=== PATIENT | male | born 1940 | race Caucasian/White ===

== ENCOUNTER 2016-12-16 13:34 | Outpatient (CLI) | payer OTHER ==
[2015-07-13 17:12] VITALS: BP 129/51
--- NOTE | 2016-12-16 15:31 | Diagnostic Imaging Report ---
Blas Garcia [facility] [address] [facility].[address] [address] Report Submission Date: Dec 16, 2016 2:09:02 PM CDT Patient Study Name: LIAM OSBORN Date: Dec 16, 2016 1:44:13 PM CDT Modality Type: CR Gender: M Description: CHEST : 44 Institution: [facility] Physician: Blas Garcia Examination: PA and lateral chest. History: Evaluate lung johnson. Comparison exam: None available Findings: PA lateral chest demonstrate a prominent cardiac and mediastinal silhouette. Vascular calcifications involving aortic arch. Chronic appearing interstitial changes. Lateral pleural thickening. No focal infiltrate. No blunting of the costophrenic margins. Osseous structures are appropriate for age. Impression: Chronic parenchymal changes. No acute pulmonary process. Electronically signed on Dec 16, 2016 2:09:02 PM CDT by: John HWANG
== END 2016-12-16 13:40 ==
LOC: RAD 13:34
PROVIDERS: ATTEND Internal Medicine
DX: R06.02 Shortness of breath (principal)
CPT/HCPCS: 71020

== ENCOUNTER 2017-05-08 09:38 | Outpatient (CLI) | payer OTHER ==
[2015-07-13 17:12] VITALS: BP 129/51
== END 2017-05-08 09:40 ==
LOC: LAB 09:38
PROVIDERS: ATTEND Nurse Practitioner Family
DX: Z79.01 Long term (current) use of anticoagulants (principal)
CPT/HCPCS: 36415; 85610

== ENCOUNTER 2017-05-15 09:10 | Outpatient (CLI) | payer OTHER ==
[2015-07-13 17:12] VITALS: BP 129/51
== END 2017-05-15 09:11 ==
LOC: LAB 09:10
PROVIDERS: ATTEND Internal Medicine Cardiovascular Disease
DX: Z79.01 Long term (current) use of anticoagulants (principal)
CPT/HCPCS: 36415; 85610

== ENCOUNTER 2017-05-24 09:02 | Outpatient (CLI) | payer OTHER ==
[2015-07-13 17:12] VITALS: BP 129/51
== END 2017-05-24 09:03 ==
LOC: LAB 09:02
PROVIDERS: ATTEND Internal Medicine Cardiovascular Disease
DX: Z79.01 Long term (current) use of anticoagulants (principal)
CPT/HCPCS: 36415; 85610

== ENCOUNTER 2017-05-29 08:48 | Outpatient (CLI) | payer OTHER ==
[2015-07-13 17:12] VITALS: BP 129/51
== END 2017-05-29 08:50 ==
LOC: LAB 08:48
PROVIDERS: ATTEND Internal Medicine Cardiovascular Disease
DX: Z79.01 Long term (current) use of anticoagulants (principal)
CPT/HCPCS: 36415; 85610

== ENCOUNTER 2017-06-19 09:06 | Outpatient (CLI) | payer OTHER ==
[2015-07-13 17:12] VITALS: BP 129/51
== END 2017-06-19 09:08 ==
LOC: LAB 09:06
PROVIDERS: ATTEND Internal Medicine Cardiovascular Disease
DX: Z79.01 Long term (current) use of anticoagulants (principal)
CPT/HCPCS: 36415; 85610

== ENCOUNTER 2017-08-18 08:07 | Outpatient (CLI) | payer OTHER ==
[2015-07-13 17:12] VITALS: BP 129/51
== END 2017-08-18 08:10 ==
LOC: LAB 08:07
PROVIDERS: ATTEND Internal Medicine Cardiovascular Disease
DX: Z79.01 Long term (current) use of anticoagulants (principal)
CPT/HCPCS: 36415; 85610

== ENCOUNTER 2017-09-17 16:53 | Emergency (ER) | payer OTHER ==
[2017-09-17 17:50] VITALS: BP 147/65
--- NOTE | 2017-09-17 17:51 | ED Physician Documentation ---
General Adult - HISTORIAN Historian: patient - HPI Stated Complaint: Discolored Toes Chief Complaint: General Adult Additional Information: Walking between deck and inside of his house and noted his toes were purple on the left foot. Called [facility] nurse and was told to come to the ER. Has recently had problems with his feet swelling and his diuretic dosage was recently increased. IDDM. HX cardiac stents. On coumadin. Sees Alejandrina Uri and has appointment with her tomorrow. No other modifying factors or associated events. - ROS CONST: no problems - PAST HX Past History: other (above) Allergies/Adverse Reactions: Allergies Allergy/AdvReac Type Severity Reaction Status Date / Time No Known Allergies Allergy Verified 07/13/15 10:09 Home Medications: Ambulatory Orders Medication Instructions Recorded Aspirin [Ruby] 81 mg PO BID 07/13/15 Glimepiride [Glimepiride] 4 mg PO BID 07/13/15 Nitroglycerin [Nitrostat] 0.4 mg PO PRN PRN 07/13/15 Potassium Chloride [Potassium 20 mg PO D 07/13/15 Chloride] Amiodarone HCl [Pacerone] 200 mg PO QD 09/17/17 Atorvastatin Calcium [Atorvastatin 20 mg PO DAILY 09/17/17 Calcium] Carvedilol [Coreg] 3.125 mg PO BS 09/17/17 Furosemide [Lasix] 80 mg PO TID 09/17/17 Gabapentin [Gabapentin] 900 mg PO TID 09/17/17 Insulin Glargine,Hum.rec.anlog 09/17/17 [Lantus] Lisinopril [Lisinopril] 5 mg PO DAILY 09/17/17 Warfarin Sodium [Warfarin Sodium] 7.5 mg PO DAILY 09/17/17 amLODIPine BESYLATE [Norvasc] 5 mg PO DAILY 09/17/17 - SOCIAL HX Smoking History: non-smoker - FAMILY HX Family History: No - VITAL SIGNS Vital Signs: Vital Signs Temp Pulse Resp BP Pulse Ox 96.7 F L 68 18 137/55 98 09/17/17 16:55 09/17/17 16:55 09/17/17 16:55 09/17/17 16:55 09/17/17 16:55 - REVIEWED ASSESSMENTS Nursing Assessment Reviewed: Yes Vitals Reviewed: Yes General Adult Physical Exam - PHYSICAL EXAM GENERAL APPEARANCE: obese EENT: eye inspection normal, ENT inspection normal NECK: normal inspection RESPIRATORY: no resp distress BACK: normal inspection SKIN: warm/dry, normal color (some color changes about base of toes consistent with vascular insufficiency, L>R. mBil DP's 1+. No cyanosis, ecchymosis or other indication of vascular compromise. Feet are warm and pink. 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
== END 2017-09-17 17:48 | disposition home or self-care (01) ==
LOC: ED 16:53
DX: E11.9 Type 2 diabetes mellitus without complications (principal)

== ENCOUNTER 2017-09-27 08:45 | Outpatient (CLI) | payer OTHER | END 2017-09-27 08:46 | LOC: LAB 08:45 | PROVIDERS: ATTEND Internal Medicine Cardiovascular Disease | DX: Z79.01 Long term (current) use of anticoagulants (principal) | CPT/HCPCS: 36415; 85610 ==

== ENCOUNTER 2017-10-11 08:41 | Outpatient (CLI) | payer OTHER | END 2017-10-11 08:43 | LOC: LAB 08:41 | PROVIDERS: ATTEND Internal Medicine Cardiovascular Disease | DX: Z79.01 Long term (current) use of anticoagulants (principal) | CPT/HCPCS: 36415; 85610 ==

== ENCOUNTER 2017-10-24 08:32 | Outpatient (CLI) | payer OTHER | END 2017-10-24 08:34 | LOC: LAB 08:32 | PROVIDERS: ATTEND Internal Medicine Cardiovascular Disease | DX: Z79.01 Long term (current) use of anticoagulants (principal) | CPT/HCPCS: 36415; 85610 ==

== ENCOUNTER 2017-11-08 09:01 | Outpatient (CLI) | payer OTHER | END 2017-11-08 09:03 | LOC: LAB 09:01 | PROVIDERS: ATTEND Internal Medicine Cardiovascular Disease | DX: Z79.01 Long term (current) use of anticoagulants (principal) | CPT/HCPCS: 36415; 85610 ==

== ENCOUNTER 2017-12-14 09:34 | Outpatient (CLI) | payer OTHER | END 2017-12-14 15:25 | LOC: LAB 09:34 | PROVIDERS: ATTEND Internal Medicine Cardiovascular Disease | DX: Z79.01 Long term (current) use of anticoagulants (principal) | CPT/HCPCS: 36415; 85610 ==

== ENCOUNTER 2018-02-12 09:05 | Outpatient (CLI) | payer OTHER | END 2018-02-12 09:10 | LOC: LAB 09:05 | PROVIDERS: ATTEND Internal Medicine Cardiovascular Disease | DX: Z79.01 Long term (current) use of anticoagulants (principal); Z51.81 Encounter for therapeutic drug level monitoring | CPT/HCPCS: 36415; 85610 ==

== ENCOUNTER 2018-03-22 11:43 | Outpatient (CLI) | payer OTHER | END 2018-03-22 12:05 | LOC: LAB 11:43 | PROVIDERS: ATTEND Internal Medicine Cardiovascular Disease | DX: Z79.01 Long term (current) use of anticoagulants (principal) | CPT/HCPCS: 36415; 85610 ==

== ENCOUNTER 2018-04-19 08:54 | Outpatient (CLI) | payer OTHER | END 2018-04-19 08:56 | LOC: LAB 08:54 | PROVIDERS: ATTEND Internal Medicine Cardiovascular Disease | DX: Z79.01 Long term (current) use of anticoagulants (principal) | CPT/HCPCS: 36415; 85610 ==

== ENCOUNTER 2018-05-17 10:05 | Outpatient (CLI) | payer OTHER | END 2018-05-17 10:07 | LOC: LAB 10:05 | PROVIDERS: ATTEND Internal Medicine Cardiovascular Disease | DX: Z79.01 Long term (current) use of anticoagulants (principal) | CPT/HCPCS: 36415; 85610 ==

== ENCOUNTER 2018-05-31 10:26 | Outpatient (CLI) | payer OTHER | END 2018-05-31 12:55 | LOC: LAB 10:26 | PROVIDERS: ATTEND Internal Medicine Cardiovascular Disease | DX: Z79.01 Long term (current) use of anticoagulants (principal) | CPT/HCPCS: 36415; 85610 ==

== ENCOUNTER 2018-07-06 08:57 | Outpatient (CLI) | payer OTHER | END 2018-07-06 09:00 | LOC: LAB 08:57 | PROVIDERS: ATTEND Internal Medicine Cardiovascular Disease | DX: Z79.01 Long term (current) use of anticoagulants (principal) | CPT/HCPCS: 36415; 85610 ==

== ENCOUNTER 2018-08-30 10:14 | Outpatient (CLI) | payer OTHER | END 2018-08-30 10:16 | LOC: LAB 10:14 | PROVIDERS: ATTEND Internal Medicine Cardiovascular Disease | DX: Z79.01 Long term (current) use of anticoagulants (principal); Z51.81 Encounter for therapeutic drug level monitoring | CPT/HCPCS: 36415; 85610 ==

== ENCOUNTER 2018-10-30 09:58 | Outpatient (CLI) | payer OTHER | END 2018-10-30 10:00 | LOC: LAB 09:58 | PROVIDERS: ATTEND Internal Medicine Cardiovascular Disease | DX: Z51.81 Encounter for therapeutic drug level monitoring (principal); Z79.01 Long term (current) use of anticoagulants | CPT/HCPCS: 36415; 85610 ==

== ENCOUNTER 2018-11-27 10:30 | Outpatient (CLI) | payer OTHER | END 2018-11-27 10:40 | LOC: LAB 10:30 | PROVIDERS: ATTEND Internal Medicine Cardiovascular Disease | DX: Z51.81 Encounter for therapeutic drug level monitoring (principal); Z79.01 Long term (current) use of anticoagulants | CPT/HCPCS: 36415; 85610 ==

== ENCOUNTER 2018-12-25 10:13 | Outpatient (CLI) | payer OTHER | END 2018-12-25 10:18 | LOC: LAB 10:13 | PROVIDERS: ATTEND Internal Medicine Cardiovascular Disease | DX: Z51.81 Encounter for therapeutic drug level monitoring (principal); Z79.01 Long term (current) use of anticoagulants | CPT/HCPCS: 36415; 85610 ==

== ENCOUNTER 2019-01-02 12:51 | Outpatient (CLI) | payer OTHER | END 2019-01-02 12:56 | LOC: LAB 12:51 | PROVIDERS: ATTEND Internal Medicine Cardiovascular Disease | DX: Z51.81 Encounter for therapeutic drug level monitoring (principal); Z79.01 Long term (current) use of anticoagulants | CPT/HCPCS: 36415; 85610 ==

== ENCOUNTER 2019-01-09 11:18 | Outpatient (CLI) | payer OTHER | END 2019-01-09 11:23 | LOC: LAB 11:18 | PROVIDERS: ATTEND Internal Medicine Cardiovascular Disease | DX: Z51.81 Encounter for therapeutic drug level monitoring (principal); Z79.01 Long term (current) use of anticoagulants | CPT/HCPCS: 36415; 85610 ==

== ENCOUNTER 2019-01-21 09:55 | Outpatient (CLI) | payer OTHER | END 2019-01-21 10:00 | LOC: LAB 09:55 | PROVIDERS: ATTEND Internal Medicine Cardiovascular Disease | DX: Z51.81 Encounter for therapeutic drug level monitoring (principal); Z79.01 Long term (current) use of anticoagulants | CPT/HCPCS: 36415; 85610 ==

== ENCOUNTER 2019-01-24 11:26 | Outpatient (CLI) | payer OTHER ==
--- NOTE | 2019-01-24 12:22 | Diagnostic Imaging Report ---
PATIENT MR#: [id number] PATIENT PATIENT NAME: LIAM OSBORN DATE OF : 1940 REFERRING PHYSICIAN: Tiera Grewal EXAM DATE: 01/24/2019 ACCESSION NUMBER: [id number] EXAM DESCRIPTION: RT HIP 2VIEW COMPLETE Exam: Right hip. History: Pain after fall. AP and frogleg lateral view of the right hip are submitted. No signs of fracture or dislocation is seen. No bony erosions are seen. No soft tissue abnormalitie s are identified. Impression: No bony abnormality. Read by: Dr. Price Santos Transcribed by: Transcribed Date: Electronically signed by: Dr. Price Santos Date signed: 01/24/2019 12:21:45 PM
--- NOTE | 2019-01-24 12:23 | Diagnostic Imaging Report ---
PATIENT MR#: [id number] PATIENT PATIENT NAME: LIAM OSBORN DATE OF : 1940 REFERRING PHYSICIAN: Tiera Grewal EXAM DATE: 01/24/2019 ACCESSION NUMBER: [id number] EXAM DESCRIPTION: L SPINE 2 OR 3 VIEWS Exam: Lumbar spine. History: Fall. AP, lateral and L5-S1 spot view of the lumbar spine are submitted. Five functional lumbar vertebrae are identified. A levoscoliosis is identified. The vertebral body heights are adequately maintained. Disc space narrowing with endplate sclerosis, spurring and vacuum phenomena a t L3-4, L4-5 and L5-S1 levels are noted. No spondylolisthesis is identified. Impression: Levoscoliosis. Multilevel degenerative disc disease. Read by: Dr. Price Santos Transcribed by: Transcribed Date: Electronically signed by: Dr. Price Santos Date signed: 01/24/2019 12:22:45 PM
--- NOTE | 2019-01-24 12:24 | Diagnostic Imaging Report ---
PATIENT MR#: [id number] PATIENT PATIENT NAME: LIAM OSBORN DATE OF : 1940 REFERRING PHYSICIAN: Tiera Grewal EXAM DATE: 01/24/2019 ACCESSION NUMBER: [id number] EXAM DESCRIPTION: T SPINE 3 VIEWS Exam: Thoracic spine. History: Fall. AP, lateral and swimmer's view of thoracic spine are submitted. The vertebral body heights are adequately maintained. Disc space narrowing with endplate sclerosis a nd spurring is seen throughout the thoracic spine. No other bony abnormalities are identified. Impression: Mild degenerative changes. Read by: Dr. Price Santos Transcribed by: Transcribed Date: Electronically signed by: Dr. Price Santos Date signed: 01/24/2019 12:23:45 PM
== END 2019-01-24 11:36 ==
LOC: RAD 11:26
PROVIDERS: ATTEND Nurse Practitioner Family
DX: M25.551 Pain in right hip (principal); M54.5 Low back pain; M54.6 Pain in thoracic spine; W19.XXXA Unspecified fall, initial encounter
CPT/HCPCS: 72072; 72100; 73502

== ENCOUNTER 2019-02-05 12:18 | Outpatient (CLI) | payer OTHER | END 2019-02-05 12:23 | LOC: LAB 12:18 | PROVIDERS: ATTEND Internal Medicine Cardiovascular Disease | DX: Z51.81 Encounter for therapeutic drug level monitoring (principal); Z79.01 Long term (current) use of anticoagulants | CPT/HCPCS: 36415; 85610 ==